=== PATIENT | female | born 2000 | race Caucasian/White ===

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

== ENCOUNTER 2019-03-07 12:47 | Emergency (ER) | payer OTHER ==
[~2019-03-07] VITALS: Ht 154.9 cm; Wt 44.9 kg
[2019-03-07] MEDS ORDERED: TENDERA-OB SOF1 EACH PO (12:59)
== END 2019-03-07 14:00 | disposition home or self-care (01) ==
LOC: ER 12:47
DX: O26.891 Other specified pregnancy related conditions, first trimester (principal); M25.511 Pain in right shoulder; Z34.01 Encounter for supervision of normal first pregnancy, first trimester

== ENCOUNTER 2019-03-30 11:29 | Emergency (ER) | payer OTHER ==
[~2019-03-30] VITALS: Ht 152.4 cm; Wt 43.5 kg
[~2019-03-30 11:29] MED LIST: TENDERA-OB SOF1 EACH PO
== END 2019-03-30 15:12 | disposition home or self-care (01) ==
LOC: ER 11:29
DX: R51 Headache (principal)

== ENCOUNTER → 2019-06-06 | Emergency (ER) | payer OTHER ==
[~2019-06-06] VITALS: Ht 154.9 cm; Wt 46.3 kg
[~2019-06-06] MED LIST changes: +TUSNEL LIQUID178 ML PO; +ZITHROMAX500 MG PO
== END | disposition home or self-care (01) ==
LOC: ER 17:26
DX: B34.9 Viral infection, unspecified (principal); B96.0 Mycoplasma pneumoniae [M. pneumoniae] as the cause of diseases classified elsewhere

== ENCOUNTER 2019-07-23 11:50 | Outpatient (CLI) | payer OTHER | END 2019-07-24 09:21 | disposition home or self-care (01) | LOC: OBS/DEL 11:50 | DX: O26.893 Other specified pregnancy related conditions, third trimester (principal); R10.2 Pelvic and perineal pain; O35.8XX0 Maternal care for other (suspected) fetal abnormality and damage, not applicable or unspecified ==